=== PATIENT | male | born 1965 | race Caucasian/White ===

== ENCOUNTER 2016-09-25 06:32 | Day surgery (SDC) | payer OTHER ==
[2016-09-24 16:01] VITALS: BMI 30.9
[2016-09-25 07:12] LABS: URINE APPEARANCE CLEAR; URINE BILIRUBIN NEGATIVE (NEGATIVE); URINE BLOOD NEGATIVE (NEGATIVE); URINE COLOR LTYELLOW; URINE GLUCOSE (UA) NEGATIVE (NEGATIVE); URINE KETONE NEGATIVE (NEGATIVE); URINE LEUK ESTERASE NEGATIVE (NEGATIVE); URINE NITRITE NEGATIVE (NEGATIVE); URINE PROTEIN NEGATIVE (NEGATIVE); URINE UROBILINOGEN NEGATIVE E.U./dl (0.2-1.0)
[2016-09-25] MEDS ORDERED: ROPIVACAINE HCL 0.5% 30ML VIAL ONE (07:17)
[2016-09-25] MEDS ORDERED: MIDAZOLAM HCL 2 MG/2 ML SINGLE DOSE VIAL ONE ×2 (07:21)
--- NOTE | 2016-09-25 08:07 | HP ---
Satellite [facility] - Chief Complaint Chief Complaint: right knee pain/instability - Past Medical History Allergies/Adverse Reactions: Allergies Allergy/AdvReac Type Severity Reaction Status Date / Time No Known Drug Allergies Allergy Verified 09/24/16 15:54 - Current Medications Current Medications: Home Medications Medication Instructions Recorded Aspirin 81 mg PO DAILY 08/10/12 Multivitamin [Multivitamins] 1 each PO DAILY 08/10/12 Telmisartan [Micardis] 80 mg PO DAILY 08/10/12 Pantoprazole Sodium [Protonix -] 20 mg PO DAILY 06/24/14 Oxycodone HCl/Acetaminophen 1 - 2 tab PO Q6H #50 tab MDD 8 09/25/16 [Percocet 5-325 mg Tablet -] Satellite Physical Exam - Physical Examination Vital Signs: Vital Signs Period Temp Pulse Resp BP Sys/[place] Pulse Ox Last 24 Hr 97.5 F-97.5 F 60-60 20-20 124-124/86-86 98 General Appearance: Well Nourished, Well Developed, Alert & Oriented x3 ENT: Clear Lung: Normal air movement Heart: Regular rate & rhythm Extremities: Other (right knee- + swelling, + ttp, + lachmans, + ant draw, + pivot, nvi MRI + acl re-rupture) Neurological: Intact, Alert, Oriented Satellite Impression/Plan - Impression/Plan Impression: right knee acl rupture Operative Procedure: right knee arthroscopyv with ACL reconstruction using allograft Date to be Performed: 09/25/16
[2016-09-25] MEDS ORDERED: PROPOFOL 20 ML ONE ×2 (08:09→10:06)
[2016-09-25] MEDS ORDERED: ceFAZolin SODIUM 1 GM VIAL IVPB ONE (10:02)
[2016-09-25] MEDS ORDERED: ceFAZolin SODIUM 1 GM VIAL ONE ×2 (10:05→13:31)
[2016-09-25] MEDS ORDERED: DEXAMETHASONE SOD PHOSPHATE 4 MG/1 ML VIAL ONE (10:09)
[2016-09-25] MEDS ORDERED: KETOROLAC TROMETHAMINE 30 MG/1 ML VIAL ONE (10:09)
[2016-09-25] MEDS ORDERED: GLYCOPYRROLATE 0.2 MG/1 ML VIAL ONE (10:37)
[2016-09-25] MEDS ORDERED: CEFAZOLIN 1 GM in DEXTROSE 5%-WATER - 50 ML IVPB ONE (11:00)
--- NOTE | 2016-09-25 11:24 | OP ---
Operative Note - Note: Operative Date: 09/25/16 ([facility]) Pre-Operative Diagnosis: right knee acl rupture Operation: right knee arthroscopy with ACL reconstruction using YARELI [place] Post-Operative Diagnosis: Same as Pre-op Surgeon: Last Sifuentes Inventory Specialist: Thor Pelletier Anesthesiologist/FINANCIAL SALES REPRESENTATIVE: Jacobo Manriquez Anesthesia: General, Local Specimens Removed: shavings Estimated Blood Loss (mls): 5 Operative Report Dictated: Yes
[2016-09-25] MEDS ORDERED: ACETAMINOPHEN INJECTION 100 ML IVPB ONE (11:30)
[2016-09-25] MEDS ORDERED: oxyCODONE HCL 5 MG TABLET PO PRN (11:35)
[2016-09-25] MEDS ORDERED: PROMETHAZINE HCL 25 MG/1 ML VIAL IVPUSH PRN (11:35)
[2016-09-25] MEDS: ACETAMINOPHEN 1000 MG/100 ML VIAL (NON FORMULARY) IVPB ONE ×2 (11:35→11:57)
[2016-09-25] MEDS ORDERED: LACTATED RINGERS SOLUTION 1,000 ML IV SCH (11:45)
[2016-09-25 11:53] VITALS: TEMP 98.1
[2016-09-25] MEDS ORDERED: oxyCODONE HCL 5 MG TABLET ONE (13:11)
--- NOTE | 2016-09-25 13:19 | OP ---
DATE OF OPERATION: 09/25/2016 PREOPERATIVE DIAGNOSIS: Right anterior cruciate ligament tear. POSTOPERATIVE DIAGNOSES: Right anterior cruciate ligament tear plus medial meniscus tear. PROCEDURE: Right anterior cruciate ligament reconstruction with GraftLink and partial medial meniscectomy. SURGICAL ATTENDING: Last Sifuentes MD OVERHEAD CRANE TECHNICIAN: JENN Lugo ANESTHESIA: Regional and LMA. CLOSURE: A GraftLink with femoral and tibial buttons as well as 3-0 nylon for skin. ESTIMATED BLOOD LOSS: Negligible. COMPLICATIONS: None. CONDITION: Stable. DESCRIPTION OF OPERATIVE PROCEDURE: Patient taken to the operating room on September 25, 2016. Regional and general anesthesia with LMA was administered by the anesthesiologist. IV Kefzol administered prophylactically prior to the case. Right lower extremity was prepped and draped in the usual sterile fashion. The GraftLink was prepared on the back table for appropriate usage with putting the appropriate markers and sutures on it for implantation. The superolateral and mediolateral infrapatellar portals were made with a 15 blade followed by blunt trocars. Outflow was superolaterally, inflow and scope were inferolaterally, and working portal was inferomedially. The scope was placed up into the suprapatellar pouch which was clean. The medial and lateral gutters were visualized to be clean. The undersurface of the patella and trochlea were visualized to be intact. With valgus stress on the knee, medial compartment was entered. Medial meniscus was found to have a complex tear from its mid to posterior horn. This was debrided back to more stable meniscal tissue using meniscal biter and arthroscopic shaver. The medial femoral condyle was run and felt to be intact as was the medial tibial plateau. In the figure-4 position, the lateral compartment was entered, the lateral meniscus visualized, and both found to be intact. Lateral femoral condyle was run and found to be intact as was the lateral tibial plateau. At 90 degrees, the ACL was visualized to be completely torn. A notchplasty was performed to perform the procedure. Using an [id number] guide, a flip cutter was drilled from the lateral aspect of the femur into the notch in the posterior aspect of the notch low down on the wall. This was then retrodrilled with the flip cutter for about 25 mm. A FiberStick suture was then placed down this and pulled into the knee and then exited the inferomedial portal. The tibial alignment guide jig was then used to drill the flip cutter from the anteromedial proximal tibia into the knee just anterior to the PCL. The flip cutter was then used to retrograde drill the tibial tunnel to a depth of about 25 mm. A [place] stitch was placed up from the outside in to the knee joint and exiting in the inferomedial portal as well. All bone fragments in the knee were washed out with the shaver. The GraftLink was pulled through the 2 shuttle stitches up the femur and down the tibia. It was toggled on the femoral side to the appropriate depth and then after the button had engaged it was then toggled on the tibial side after the button was assembled, achieving excellent depth of the graft on both the femur and the tibia as well as excellent tensioning of the ACL graft. The knee was taken through a range of motion and found to go to full extension, full flexion, with no impingement on the notch, good crossing of the PCL, negative anterior/posterior drawer, negative Mia, negative pivot. The sutures were cut snug using arthroscopic cutting tool. The portals were closed with 3-0 nylon. A sterile pressure dressing was applied followed by a knee immobilizer. Patient awakened from anesthesia and transported to recovery in stable condition. No complications. Estimated blood loss: Negligible. Maggy [id number]
[2016-09-25 15:15] VITALS: BP 130/84; PULSE 53
--- NOTE | 2016-09-28 13:39 | PATH ---
Surgical Pathology Report Patient Name: ROLANDO REES [facility]. Rec. #: [id number] /Age/Gender: 1965 (Age: 50) / M Account: [id number] Location: [facility] SURGICAL Taken: 09/25/2016 Received: 09/25/2016 Reported: 09/28/2016 Physicians: Last Sifuentes M.D. Specimen(s) Received SHAVINGS RIGHT KNEE Clinical History Right ACL tear Final Diagnosis KNEE, RIGHT, ARTHROSCOPIC SHAVING: FIBROCARTILAGE WITH MYXOID DEGENERATIVE CHANGES, ALONG WITH PORTIONS OF SYNOVIUM, BONE AND HYALINE CARTILAGE. Electronically Signed Matty Silva M.D. Gross Description Received in formalin, labeled "right knee shavings," is a 5.0 x 4.3 x 0.6 cm. aggregate of dunbar-yellow soft tissue fragments. A retail service representative portion is submitted in one cassette. /09/25/201609/25/2016
== END 2016-09-25 14:15 | disposition home or self-care (01) ==
LOC: JASU-SURG 06:32
PROVIDERS: ATTEND Orthopaedic Surgery
PROC: 0MUN47Z Supplement Right Knee Bursa and Ligament with Autologous Tissue Substitute, Percutaneous Endoscopic Approach (ICD-10-PCS; 2016-09-25)
PROC: 0SBC4ZZ Excision of Right Knee Joint, Percutaneous Endoscopic Approach (ICD-10-PCS; principal; 2016-09-25 08:00)
DX: S83.511A Sprain of anterior cruciate ligament of right knee, initial encounter (principal); S83.241A Other tear of medial meniscus, current injury, right knee, initial encounter; X58.XXXA Exposure to other specified factors, initial encounter; Y93.9 Activity, unspecified; Y92.9 Unspecified place or not applicable
CPT/HCPCS: 81003; 88304-TC; 94760; 97116-GP

== ENCOUNTER 2017-08-18 10:00 | Day surgery (SDC) | payer OTHER ==
[2017-08-17 09:24] VITALS: BMI 30.9
--- NOTE | 2017-08-18 10:18 | HP ---
Satellite [facility] - Chief Complaint Chief Complaint: left shoulder pain - Past Medical History Allergies/Adverse Reactions: Allergies Allergy/AdvReac Type Severity Reaction Status Date / Time No Known Drug Allergies Allergy Verified 08/17/17 09:18 - Current Medications Current Medications: Home Medications Medication Instructions Recorded Aspirin 81 mg PO DAILY 08/10/12 Multivitamin [Multivitamins] 1 each PO DAILY 08/10/12 Telmisartan [Micardis] 80 mg PO DAILY 08/10/12 Pantoprazole Sodium [Protonix -] 20 mg PO DAILY 06/24/14 Hydrocodone/Acetaminophen [[place] 1 each PO Q6H PRN #40 tablet MDD 4 08/18/17 5-325 Tablet] [facility] Physical Exam - Physical Examination General Appearance: Well Nourished, Well Developed, Alert & Oriented x3 ENT: Clear Lung: Normal air movement Heart: Regular rate & rhythm Extremities: Other (left shoulder- + ttp, decr rom, + neer, + bassett, + empty can, nvi MRI - + rct) Neurological: Intact, Alert, Oriented Satellite Impression/Plan - Impression/Plan Impression: left shoulder impingement, rct Operative Procedure: left shoulder arthroscopy with ADAM LOMBARDO Date to be Performed: 08/18/17
[2017-08-18] MEDS ORDERED: MIDAZOLAM HCL 2 MG/2 ML SINGLE DOSE VIAL ONE ×2 (10:54)
[2017-08-18] MEDS ORDERED: BUPIVACAINE HCL/PF 0.5% (5MG/ML) 10 ML VIAL ONE (10:56)
[2017-08-18] MEDS ORDERED: DEXAMETHASONE SOD PHOSPHATE/PF 10 MG/ML SDV ONE (10:56)
[2017-08-18] MEDS ORDERED: ONDANSETRON 4 MG/2 ML VIAL IVPUSH PRN (11:06)
[2017-08-18] MEDS ORDERED: oxyCODONE HCL 5 MG TABLET PO PRN ×2 (11:06)
[2017-08-18] MEDS ORDERED: LACTATED RINGERS SOLUTION 1,000 ML IV SCH (11:15)
[2017-08-18] MEDS ORDERED: DEXAMETHASONE SOD PHOSPHATE 4 MG/1 ML VIAL ONE (12:43)
[2017-08-18] MEDS ORDERED: LIDOCAINE HCL/PF 2% SDV 5ML VIAL ONE (12:45)
[2017-08-18] MEDS ORDERED: ceFAZolin SODIUM 1 GM VIAL ONE (12:46)
[2017-08-18] MEDS ORDERED: PROPOFOL 20 ML ONE (12:46)
[2017-08-18] MEDS ORDERED: ceFAZolin SODIUM 1 GM VIAL IVPB ONE (12:50)
[2017-08-18] MEDS ORDERED: ePHEDrine SULFATE 50 MG/1 ML AMPULE ONE (12:56)
[2017-08-18] MEDS ORDERED: GLYCOPYRROLATE 0.2 MG/1 ML VIAL ONE (13:12)
[2017-08-18 14:39] VITALS: TEMP 98
[2017-08-18 15:07] VITALS: BP 122/70; PULSE 67
--- NOTE | 2017-08-18 15:54 | OP ---
DATE OF OPERATION: 08/18/2017 PREOPERATIVE DIAGNOSIS: Left shoulder rotator cuff tear, mild adhesive capsulitis and subacromial bursitis. POSTOPERATIVE DIAGNOSIS: Left shoulder rotator cuff tear, mild adhesive capsulitis and subacromial bursitis. PROCEDURE: Left shoulder open rotator cuff repair, arthroscopic subacromial decompression, and manipulation under anesthesia. SURGEON: Colleen Farrell MD LICENSE DISTRIBUTOR: JENN Lugo ANESTHESIA: Left interscalene block with LM anesthesia. Salomón Felix MD DRAINS: None. COMPLICATION: None. BLOOD LOSS: Minimal. BLOOD GIVEN: None. FLUID REPLACEMENT: 700 mL Plasmalyte. INDICATIONS: This patient is a 51-year-old male with a preoperative diagnosis of a left shoulder rotator cuff tear, mild adhesive capsulitis, and mild bursitis. After understanding the potential risks, complications, alternatives, and benefits to surgical versus nonsurgical treatment, the patient elected to undergo this procedure. The patient was brought to the operating room, peripheral IV placed, IV sedation given. A left interscalene block was performed. LM anesthesia was induced. I did a manipulation under anesthesia, moving the patient's left shoulder through a full plane of range of motion, was able to stretch it and get further in forward flexion and abduction. The left upper extremity was prepped and draped in sterile fashion. The bony landmarks were marked out with a marking pen. The posterior portal was established and a diagnostic glenohumeral arthroscopy was performed. It was immediately apparent the patient had a huge rotator cuff tear. There was a lot of synovitis and the anterior labrum was quite frayed, therefore, an anterior portal was established and, using the ArthroCare wand, I did a partial intraarticular synovectomy and debrided the frayed labrum. The entire shoulder joint was irrigated and washed out. Next, our attention turned to the subacromial space. A lateral portal was established under direct visualization using a spinal needle. A green cannula was introduced into the subacromial space. The patient's bursitis was mild but, while I was there, I took the opportunity to do a soft tissue bursectomy with the ArthroCare wand. There was no recurrent bony spur. The top surface of the rotator cuff was directly visualized and it was seen to have a huge crescent-shaped tear. The edges were debrided, its landing bed debrided of soft tissue. There was 1 bony ridge that was removed and the area was mildly decorticated for better healing. Additional sub-deltoid bursectomy was performed. Next, using direct visualization and Scorpion needle passer, I put in 5 FiberWires. We then transferred to an open approach. The skin incision was extended with a number 15 scalpel blade. Subcutaneous hemostasis achieved with Bovie cautery, dissection done down to the acromion. I split the deltoid in line with its fibers, brought the stitches out through this deltoid split and used the Gelpi and [place] retractors for better visualization. Additional open bursectomy was performed. I then used a Antunez elevator for mobilization and was able to get better mobilization of the rotator cuff. I also used a rongeur to remove any soft tissue remaining at its landing bed. I was able to better understand the morphology of the rotator cuff tear. The 2 anterior FiberWires, 4 tails, were put through a Swivel-Lock anchor and put in under direct visualization in standard fashion. This brought the entire anterior rotator cuff down quite nicely to the humerus. Next, I put the middle and slightly posterior 3 FiberWires, 6 tails, through another Swivel-Lock anchor put into the mid aspect of the rotator cuff insertion. This brought most of the rest of it down quite nicely. There was still a posterior flap of the rotator cuff tear, it was a huge rotator cuff overall, so under direct visualization, I put in 2 more FiberWires with a Scorpion needle passer and incorporated these into another Swivel-Lock anchor which I put slightly more posteriorly. It all came together quite nicely. The entire rotator cuff moved as a unit with the humerus. The area was irrigated and washed out. Closure was done with 0 Vicryl in the deltoid fascia, 2-0 Vicryl in the deep dermal layer. Final skin reapproximation was done with a running subcuticular 3-0 V-Loc suture. The anterior and posterior portals were closed nylon. The area was then washed and dried, covered with SwiftSet glue, Aquacel dressing. The patient was put into a shoulder immobilizer. Total operative time was about 50 minutes. There were no complications during the case. The patient tolerated the procedure quite well, was extubated, brought down out of beach chair position, brought to the ambulatory recovery room in stable condition. COLLEEN FARRELL M.D. [id number]
--- NOTE | 2017-08-23 12:14 | PATH ---
Surgical Pathology Report Patient Name: ROLANDO REES Med. Rec. #: [id number] /Age/Gender: 1965 (Age: 51) / M Account: [id number] Location: [facility] SURGICAL Taken: 08/18/2017 Received: 08/19/2017 Reported: 08/23/2017 Physicians: Mirza Mosley M.D. Specimen(s) Received A: LEFT SHOULDER SHAVINGS B: LOOSE BODY IN LEFT SHOULDER Clinical History Left shoulder rotator cuff tear Final Diagnosis A. LEFT SHOULDER, SHAVINGS: SYNOVIAL TISSUE WITH FIBROSIS. SEPARATE FIBROCARTILAGINOUS TISSUE WITH DEGENERATIVE CHANGE. B. LEFT SHOULDER, LOOSE BODY, EXCISION: FIBROCARTILAGINOUS TISSUE WITH DEGENERATIVE CHANGE. Electronically Signed Diane Zayas M.D. Gross Description A. Received in formalin, labeled "left shoulder shavings," is a 3.2 x 2.5 x 0.3 cm. aggregate of dunbar-yellow soft tissue fragments. A sales representative uniforms portion is submitted in one cassette. B. Received in formalin labeled "loose body in left shoulder" is a 1.7 x 1.3 x 0.2 cm dunbar, irregular portion of dense fibrous tissue. The specimen is serially sectioned and entirely submitted in one cassette. 08/19/201708/19/2017
== END 2017-08-18 15:22 | disposition home or self-care (01) ==
LOC: JASU-SURG 10:00
PROVIDERS: ATTEND Orthopaedic Surgery
PROC: 7W07X9Z Osteopathic Treatment of Upper Extremities using Other Method (ICD-10-PCS; 2017-08-18)
PROC: 0LQ20ZZ Repair Left Shoulder Tendon, Open Approach (ICD-10-PCS; principal; 2017-08-18 12:00)
PROC: 0RBK4ZZ Excision of Left Shoulder Joint, Percutaneous Endoscopic Approach (ICD-10-PCS; 2017-08-18 12:00)
DX: M75.102 Unspecified rotator cuff tear or rupture of left shoulder, not specified as traumatic (principal); M75.02 Adhesive capsulitis of left shoulder; M75.52 Bursitis of left shoulder
CPT/HCPCS: 88304-TC; 94760

== ENCOUNTER 2022-06-29 05:16 | Day surgery (SDC) | payer OTHER ==
[2022-06-25 12:01] VITALS: BMI 31.2
[~2022-06-29 05:16] MED LIST: ceFAZolin SODIUM 1 GM VIAL IVPB ONE
[2022-06-29] MEDS ORDERED: DEXAMETHASONE SOD PHOSPHATE 10 MG/1 ML VIAL ONE (08:36)
[2022-06-29] MEDS ORDERED: ROPIVACAINE HCL 0.5% 30ML VIAL ONE (08:37)
[2022-06-29] MEDS ORDERED: MIDAZOLAM HCL 2 MG/2 ML SINGLE DOSE VIAL ONE ×2 (08:37→09:00)
[2022-06-29] MEDS ORDERED: PROPOFOL 20 ML ONE ×2 (09:01→09:51)
[2022-06-29] MEDS ORDERED: LIDOCAINE HCL/PF 2% SDV 5ML VIAL ONE (09:10)
[2022-06-29] MEDS ORDERED: ceFAZolin SODIUM 1 GM VIAL IVPB ONE (09:51)
[2022-06-29] MEDS ORDERED: ceFAZolin SODIUM 1 GM VIAL ONE (10:10)
[2022-06-29] MEDS ORDERED: DEXAMETHASONE SOD PHOSPHATE 4 MG/1 ML VIAL ONE (10:10)
[2022-06-29] MEDS ORDERED: ONDANSETRON 4 MG/2 ML VIAL ONE (10:10)
[2022-06-29] MEDS ORDERED: oxyCODONE HCL 5 MG TABLET PO PRN (11:25)
[2022-06-29] MEDS ORDERED: ONDANSETRON 4 MG/2 ML VIAL IVPUSH PRN (11:25)
[2022-06-29] MEDS ORDERED: LACTATED RINGERS SOLUTION 1,000 ML IV SCH (11:30)
[2022-06-29 13:21] VITALS: RESP 18; TEMP 97
[2022-06-29 13:59] VITALS: BP 124/77; PULSE 74
== END 2022-06-29 13:30 | disposition home or self-care (01) ==
LOC: JASU-SURG 05:16
PROVIDERS: ATTEND Orthopaedic Surgery
PROC: 0RNJ4ZZ Release Right Shoulder Joint, Percutaneous Endoscopic Approach (ICD-10-PCS; 2022-06-29)
PROC: 0LN14ZZ Release Right Shoulder Tendon, Percutaneous Endoscopic Approach (ICD-10-PCS; 2022-06-29)
PROC: 0PB94ZZ Excision of Right Clavicle, Percutaneous Endoscopic Approach (ICD-10-PCS; 2022-06-29)
PROC: 0LS34ZZ Reposition Right Upper Arm Tendon, Percutaneous Endoscopic Approach (ICD-10-PCS; principal; 2022-06-29 09:00)
DX: M75.41 Impingement syndrome of right shoulder (principal); S43.431A Superior glenoid labrum lesion of right shoulder, initial encounter; S46.211A Strain of muscle, fascia and tendon of other parts of biceps, right arm, initial encounter; X58.XXXA Exposure to other specified factors, initial encounter; Y93.9 Activity, unspecified; Y92.9 Unspecified place or not applicable; Y99.9 Unspecified external cause status
CPT/HCPCS: 94760; C1713; J1100